=== PATIENT | male | born 1930 | race Caucasian/White ===

== ENCOUNTER → 2016-05-07 | Outpatient (REF) | payer MEDICARE ==
[2016-05-07 11:10] LABS: BILIRUBIN,URINE Negative (Negative); CLARITY,URINE Clear; COLOR,URINE Yellow; GLUCOSE, URINE (UA) Negative (Negative); LEUKOCYTE ESTERASE ,URINE Negative (Negative); PH,URINE 5.5 (5.0 - 8.0); UROBILINOGEN,URINE 0.2 mg/dL (0.2-1.0)
== END ==
LOC: LAB 10:25
PROVIDERS: ATTEND Family Medicine
DX: N39.0 Urinary tract infection, site not specified (principal)
CPT/HCPCS: 81003

== ENCOUNTER → 2016-06-15 | Outpatient (REF) | payer MEDICARE ==
[2016-06-15 18:56] LABS: BILIRUBIN,URINE Negative (Negative); COLOR,URINE Yellow; GLUCOSE, URINE (UA) Negative (Negative); LEUKOCYTE ESTERASE, URINE Negative (Negative)
[2016-06-15 18:58] LABS: CLARITY,URINE Slightly Cloudy
== END ==
LOC: LAB 17:52
PROVIDERS: ATTEND Family Medicine
DX: N39.0 Urinary tract infection, site not specified (principal)
CPT/HCPCS: 81003

== ENCOUNTER → 2016-07-17 | Outpatient (REF) | payer MEDICARE ==
[~2016-07-17] MED LIST: AC325T PO; ACID1TAB16 PO; AMOX1TAB12 PO; APIX5TAB PO; ASPI-586 PO; CALC300T10 PO; CARB1TAB43 PO; CARB1TAB6 PO; CHOL100045 PO; CYAN10004 IJ; CYAN10004 IM; DGX.125T PO; DIVA125C10 PO; DIVA125T3 PO; DLT120CCR PO; DOCU-243 PO; HLP.5T PO; HYDR-33 PO; LEVO75TA4 PO; LVCR25100 PO; MAGN400O7 PO; MEMA28CA PO; MENT71OI2 TOP; METO-270 PO; MIDO10TA PO; MIRT15TA98 PO; MNTL10T PO; MONT4GRA2 PO; MULT-955 PO; ONDA2VIA IV; PEDI1TAB17 PO; POLY17PO2 PO; POLY1DRO2 OU; QUET50TA3 PO; RIVA1PAT9 TD; SAW450CA4 PO; SERT50TA; SOTA80TA PO; TAMS-8 PO; TRAZ-28 PO; TRM50T; VIT D; [UNRECOGNIZED DRUG - CODE] IV
[2016-07-17 11:07] LABS: BILIRUBIN,URINE Negative (Negative); COLOR,URINE Dark Yellow; GLUCOSE, URINE (UA) Negative (Negative); LEUKOCYTE ESTERASE ,URINE Negative (Negative); PH,URINE 5.5 (5.0 - 8.0)
[2016-07-17 11:08] LABS: CLARITY,URINE Slightly Cloudy
[2016-07-17 11:38] LABS: BASOPHILS % (AUTO) 0 % (0-2); EOSINOPHILS # (AUTO) 0.4 10^3uL; EOSINOPHILS % (AUTO) 4 % (0-4); LYMPHOCYTES # (AUTO) 1.6 X10^3; MEAN CORPUSCULAR HGB CONC 32.2 g/dL (31.0-37.0); MEAN PLATELET VOLUME 10.9 FL (6.0-9.5); MONOCYTES # (AUTO) 1.2 X10^3; MONOCYTES % (AUTO) 12 % (3-11); NEUTROPHILS # (AUTO) 6.7 X10^3; NEUTROPHILS % (AUTO) 68 % (51-67); PLATELET COUNT 162 10^3uL (150-450); WHITE BLOOD COUNT 9.94 10^3uL (4.0-11.0)
[2016-07-17 11:40] LABS: MEAN CORPUSCULAR HEMOGLOBIN 32.4 PG (26.0-34.0); MEAN CORPUSCULAR VOLUME 101 FL (80-100)
[2016-07-17 12:26] LABS: ALBUMIN 3.5 g/dL (3.4-5.0); ANION GAP 17.3 MEQ/L (3-15); CALCULATED IONIZED CALCIUM 4.5 mg/dL (3.8-4.6); TOTAL PROTEIN 6.2 g/dL (6.4-8.5)
== END ==
LOC: LAB 10:21
PROVIDERS: ATTEND Family Medicine
DX: G40.89 Other seizures (principal); I48.2 Chronic atrial fibrillation
CPT/HCPCS: 80053; 80162; 80164; 81003; 84443; 85025

== ENCOUNTER → 2016-07-17 | Outpatient (CLI) | payer MEDICARE ==
--- NOTE | 2016-07-17 14:05 | Diagnostic Imaging Report ---
INDICATION: Atrial fib. Comparison with 02/20/2016. FINDINGS: The lungs are well aerated. There are no infiltrates. No masses are present. The heart is not enlarged. There is no evidence of pulmonary edema. No pneumothorax or pleural effusions. IMPRESSION: Normal PA and lateral chest. Dictated by: Dictated on workstation # [id number]
== END ==
LOC: RAD 11:37
PROVIDERS: ATTEND Family Medicine
DX: I48.2 Chronic atrial fibrillation (principal); G40.89 Other seizures
CPT/HCPCS: 71020

== ENCOUNTER → 2016-07-24 | Outpatient (REF) | payer MEDICARE ==
[2016-07-24 13:08] LABS: BILIRUBIN,URINE Negative (Negative); CLARITY,URINE Cloudy; COLOR,URINE Yellow; GLUCOSE, URINE (UA) Negative (Negative); LEUKOCYTE ESTERASE ,URINE Trace (Negative)
[2016-07-24 15:06] LABS: URINE CENTRIFUGED VOLUME 12 mL
== END ==
LOC: LAB 11:51
PROVIDERS: ATTEND Family Medicine
DX: N39.0 Urinary tract infection, site not specified (principal); R82.99 Other abnormal findings in urine
CPT/HCPCS: 81003; 81015; 87077; 87088